=== PATIENT | male | born 1960 | race Caucasian/White ===

== ENCOUNTER 2018-02-11 11:16 | Inpatient (IN) | payer OTHER ==
[~2018-02-11] VITALS: Ht 167.6 cm; Wt 64.6 kg
[2018-02-11] VITALS (12 sets, daily range): BP systolic 97–152; BP diastolic 61–122
[2018-02-11] MEDS ORDERED: METFORMIN HCL500 MG PO (11:17)
[2018-02-11 11:43] LABS: URINE BILIRUBIN NEGATIVE (Negative); URINE BLOOD NEGATIVE (Negative); URINE CLARITY CLEAR; URINE COLOR YELLOW; URINE GLUCOSE-RANDOM NEGATIVE (Negative); URINE KETONES 1+ (Negative); URINE LEUKOCYTES-REFLEX NEGATIVE (Negative); URINE NITRITE-REFLEX NEGATIVE (Negative); URINE PROTEIN NEGATIVE (Negative); URINE SPECIFIC GRAVITY <= 1.005 (1.005-1.030); URINE UROBILINOGEN 0.2 E.U./dl (0.2-1.0)
[2018-02-11 11:51] LABS: AMP/METHAMP Negative (Negative); BARBITURATES Negative (Negative); BENZODIAZEPINES Negative (Negative); COCAINE Negative (Negative); METHADONE Negative (Negative); OPIATES Negative (Negative); PCP Negative (Negative); THC Negative (Negative)
[2018-02-11 11:52] LABS: ABSOLUTE BASOPHILS 0.1 thou/uL (0.0-0.2); ABSOLUTE LYMPHOCYTES 1.3 thou/uL (0.8-5.3); ABSOLUTE MONOCYTES 0.8 thou/uL (0.0-1.2); ABSOLUTE NEUTROPHILS 3.8 thou/uL (1.6-8.1); BASOPHILS 1.2 %; EOSINOPHILS 0.4 %; HEMATOCRIT 46.1 % (42.0-52.0); HEMOGLOBIN 15.7 gm/dL (14.0-18.0); LYMPHOCYTES 21.9 %; MCH 32.3 pg (26.0-34.0); MCHC 34.1 g/dL (28.0-37.0); MCV 94.7 fL (80.0-100.0); MONOCYTES 12.8 %; MPV 7.1 fl. (7.2-11.1); NUCLEATED RBCS 0 /100WBC; PLATELET COUNT* 200 thou/uL (150-400); POLYS 63.7 %; RBC 4.86 mil/uL (4.50-6.00); RDW-CV 15.8 % (10.5-14.5); WBC 5.9 thou/uL (4.0-11.0)
[2018-02-11 12:01] LABS: ANION GAP 20 mmol/L (7-16); BUN 11 mg/dL (7-18); CALCIUM 8.7 mg/dL (8.5-10.1); CHLORIDE 101 mmol/L (98-107); CO2 20 mmol/L (21-32); CREATININE 0.6 mg/dL (0.6-1.3); GLUCOSE 88 mg/dL (70-99); POTASSIUM 3.4 mmol/L (3.5-5.1); SODIUM 141 mmol/L (136-145)
[2018-02-11 12:02] LABS: APTT 29.2 Seconds (25.0-31.3); INR 0.9; PROTIME 9.7 Seconds (9.20-11.50)
[2018-02-11 12:08] LABS: ALBUMIN 4.2 g/dL (3.4-5.0); ALKALINE PHOSPHATASE 87 U/L (46-116); LIPASE 714 U/L (73-393); SGOT 173 U/L (15-37); SGPT 166 U/L (30-65); TOTAL BILIRUBIN 0.5 mg/dL (<0.1-1.0); TOTAL PROTEIN 7.4 g/dL (6.4-8.2); TROPONIN-I LEVEL <0.06 ng/mL (<0.06)
[2018-02-11 12:25] LABS: ALCOHOL 371 mg/dL (<10); SALICYLATE 6.8 mg/dL (2.8-20.0)
[2018-02-11 12:29] LABS: ACETAMINOPHEN < 2 ug/mL (10-30)
--- NOTE | 2018-02-11 14:12 | NUR ---
PT SISTER, GUERITA CAN BE REACHED AT [phone]
--- NOTE | 2018-02-11 14:32 | EKG ---
[place] [address] ELECTROCARDIOGRAM REPORT Name: BELLA KINSEY Room: [address] ADM IN ..#: [id number] Admission: 02/11/18 Attend Phys: Cynthia Desir Discharge: Date of : 58 Report #: [id number] THIS REPORT FOR: //name// [facility] ED Test Date: 2018-02-11 Test Time: 11:36:34 Pat Name: BELLA KINSEY Department: Room: [facility] Gender: M Lumber Buyer: Rogers SANTIZO : 1960 Requested By: Tomy Looney Order Number: [id number] MD: Claus Mendez Measurements Intervals [employer] Rate: 113 P: 38 IL: 141 QRS: 7 QRSD: 100 T: 40 QT: 328 QTc: 450 Interpretive Statements Sinus tachycardia No previous ECG available for comparison Electronically Signed On 02-11-2018 14:32:27 CEMENT LOADER by Claus Mendez [email or web address] <ELECTRONICALLY SIGNED> By: Claus Mendez MD, [facility] 02/11/18 1432 D: [id number] Claus Mendez MD, FAC /EPI
[2018-02-11] MEDS ORDERED: LISINOPRIL20 MG PO (16:30)
[2018-02-11 18:08] LABS: CALCIUM 7.7 mg/dL (8.5-10.1); CREATININE 0.6 mg/dL (0.6-1.3); MAGNESIUM 1.8 mg/dL (1.8-2.4); POTASSIUM 3.7 mmol/L (3.5-5.1)
[2018-02-12] VITALS (9 sets, daily range): BP systolic 100–129; BP diastolic 67–87
--- NOTE | 2018-02-12 06:20 | NUR ---
PT AAOX4 RESP REG AND UNALBORED SKIN W/D NO ACUTE DISTRESS NOTED. HAND SEWER INTACT. WITH ALARMS SET. CIWA 0,2,0 TONIGHT. PT DESATS WHEN SLEEPING AND O2 2L BNC APPLIED. VSS AND NO ACUTE CHANGES DURING SHIFT. WILL CONTINUE TO MONITOR
[2018-02-12 08:59] LABS: ABSOLUTE LYMPHOCYTES 0.9 thou/uL (0.8-5.3); ABSOLUTE MONOCYTES 0.9 thou/uL (0.0-1.2); ABSOLUTE NEUTROPHILS 4.7 thou/uL (1.6-8.1); BASOPHILS 0.7 %; EOSINOPHILS 0.3 %; HEMATOCRIT 39.9 % (42.0-52.0); LYMPHOCYTES 13.8 %; MCH 32.4 pg (26.0-34.0); MCHC 34.1 g/dL (28.0-37.0); MCV 94.8 fL (80.0-100.0); MONOCYTES 13.3 %; MPV 7.3 fl. (7.2-11.1); NUCLEATED RBCS 0 /100WBC; PLATELET COUNT* 150 thou/uL (150-400); POLYS 71.9 %; RBC 4.21 mil/uL (4.50-6.00); RDW-CV 15.6 % (10.5-14.5); WBC 6.5 thou/uL (4.0-11.0)
[2018-02-12 09:01] LABS: HEMOGLOBIN 13.6 gm/dL (14.0-18.0)
[2018-02-12 09:13] LABS: ALBUMIN 3.5 g/dL (3.4-5.0); CALCIUM 8.2 mg/dL (8.5-10.1); CREATININE 0.6 mg/dL (0.6-1.3); MAGNESIUM 1.6 mg/dL (1.8-2.4); PHOSPHORUS* 2.8 mg/dL (2.5-4.9); POTASSIUM 3.9 mmol/L (3.5-5.1); TOTAL BILIRUBIN 1.6 mg/dL (<0.1-1.0); TOTAL PROTEIN 6.1 g/dL (6.4-8.2)
--- NOTE | 2018-02-12 11:34 | NUR ---
MET WITH PT TO DISCUSS HOME SITUATION/DC PLANNING. PT LIVES IN [facility] AT THIS TIME. WAS WORKING A ASSISTANT ATHLETIC TRAINER IN [employer] BUT STATES LOST HIS JOB A WEEK AGO. ADMITS TO ETOH INTAKE, STATES HAS BEEN IN [place] IN PAST, LAST WAS 5YRS AGO IN [place]. WAS IN A 13MONTH '[place]' PROGRAM AND STAYED SOBER FOR 14MONTHS. HE IS CONSIDERING ETOH REHAB [place] AT THIS TIME. PT HAS DR HE SEES AT [facility] IN [facility]. SISTER GUERITA JOYNER IS DPOA AND SUPPROTIVE. GAVE PT ETOH REHAB RESOURCES AND DISCUSSED. EXPLAINED THAT HE WILL NEED TO MAKE CALLS TO SET UP OUTPT [place], SUGGESTED HE CALL FIRST CALL, [facility] OR [facility] AND GAVE NUMBERS. ALSO GAVE COMMUNITY/PRESCRIPTION RESOURCES. WILL FOLLOW
--- NOTE | 2018-02-12 13:14 | NUR ---
REPORT FROM [facility]. ASSESSMENT CHARTED. AFEBRILE. VITAL SIGNS STABLE. PT TELE STATUS. MEDS GIVEN. UPDATED FAMILY ON PT STATUS. WILL CONTINUE TO MONITOR.
[2018-02-13] VITALS: BP 116/74
--- NOTE | 2018-02-13 02:15 | NUR ---
TRANSFER FROM ER PT ARRIVED TO THE FLOOR AT 1920 AND I RECIEVED REPORT FROM ICU NURSE. PT UP ADLIB. HI LIFT OPERATOR IN PLACE. VITAL SIGNS STABLE AND ON RA. PT DID STATE HE HAD A HEADACHE AND PRN MEDS GIVEN ORDERED. ASSESSMENT COMPLETED AND DISCUSSED PLAN OF CARE WT PT AND HE UNDERSTANDS. BED LOCKED AND CALL LIGHT WITHIN REACH. FALL PRECAUTIONS IN PLACE. HOURLY ROUNDING COMPLETED AND ALL NEEDS MET. NURSING WILL CONTINUE TO MONITOR.
[2018-02-13 04:00] VITALS: BP 115/84
--- NOTE | 2018-02-13 08:30 | NUR ---
ASSUMED PT. CARE AND RECEIVED REPORT AT 0730. PT A/OX4, VSS, MONITOR ON TRACING SR. PT. DENIES CURRENT PAIN, EXCEPT HEADACHE;TREATED BY TYLENOL. ON RA @ 96%. FULL ASSESSMENT COMPLETED, REFER TO CHARTING. PT. DOES NOT EXHIBIT ANY OBVIOUS SIGNS OF DETOX AT THIS TIME. CALL LIGHT IN REACH, WILL CONTINUE WITH PLAN OF CARE.
[2018-02-13 08:57] VITALS: BP 145/97
[2018-02-13 11:37] VITALS: BP 126/75
[2018-02-13 12:03] VITALS: BP 126/75
--- NOTE | 2018-02-13 12:52 | NUR ---
DC ORDERS RECEIVED. BOTH IV'S AND MONITOR REMOVED. PT. GIVEN DC INSTRUCTIONS AND VERBALIZED UNDERSTANDING. PT. LEFT VIA CAB TO RETURN TO HOME, ALL BELONGINGS ACCOUNTED FOR AT TIME OF DC.
== END 2018-02-13 12:53 | disposition home or self-care (01) | DRG 440 ==
LOC: M.ERS 11:16 → M.ICU 12:53 → M.TBA-ER 12:53 → M.ICU 14:01 → M.2W 02-12 19:28
PROVIDERS: Family Medicine; ADMIT Internal Medicine
DX: K85.20 Alcohol induced acute pancreatitis without necrosis or infection (principal); E11.9 Type 2 diabetes mellitus without complications; E86.0 Dehydration; F17.210 Nicotine dependence, cigarettes, uncomplicated; F10.129 Alcohol abuse with intoxication, unspecified; E83.42 Hypomagnesemia; Z79.899 Other long term (current) drug therapy; Z28.21 Immunization not carried out because of patient refusal

== ENCOUNTER 2018-05-06 21:42 | Inpatient (IN) | payer OTHER ==
[~2018-05-06] VITALS: Ht 172.7 cm; Wt 65.8 kg
[~2018-05-06 21:42] MED LIST: LISINOPRIL20 MG PO; METFORMIN HCL500 MG PO
[2018-05-06 21:43] VITALS: BP 137/99
[2018-05-06] MEDS ORDERED: CARVEDILOL (21:50)
[2018-05-06 22:10] LABS: ABSOLUTE BASOPHILS 0.1 thou/uL (0.0-0.2); ABSOLUTE EOSINOPHILS 0.1 thou/uL (0.0-0.7); ABSOLUTE LYMPHOCYTES 2.9 thou/uL (0.8-5.3); ABSOLUTE MONOCYTES 0.7 thou/uL (0.0-1.2); ABSOLUTE NEUTROPHILS 4.3 thou/uL (1.6-8.1); BASOPHILS 0.9 %; EOSINOPHILS 1.1 %; HEMATOCRIT 43.9 % (42.0-52.0); HEMOGLOBIN 14.6 gm/dL (14.0-18.0); LYMPHOCYTES 35.9 %; MCH 30.4 pg (26.0-34.0); MCHC 33.3 g/dL (28.0-37.0); MCV 91.3 fL (80.0-100.0); MONOCYTES 8.7 %; MPV 7.6 fl. (7.2-11.1); NUCLEATED RBCS 0 /100WBC; PLATELET COUNT* 284 thou/uL (150-400); POLYS 53.4 %; RBC 4.82 mil/uL (4.50-6.00); RDW-CV 14.5 % (10.5-14.5)
[2018-05-06 22:20] LABS: ALKALINE PHOSPHATASE 82 U/L (46-116); ANION GAP 10 mmol/L (7-16); BUN 6 mg/dL (7-18); CALCIUM 8.8 mg/dL (8.5-10.1); CHLORIDE 100 mmol/L (98-107); CO2 28 mmol/L (21-32); CREATININE 0.7 mg/dL (0.6-1.3); GLUCOSE 105 mg/dL (70-99); LIPASE 249 U/L (73-393); MAGNESIUM 1.9 mg/dL (1.8-2.4); POTASSIUM 3.5 mmol/L (3.5-5.1); SGOT 24 U/L (15-37); SGPT 31 U/L (30-65); SODIUM 138 mmol/L (136-145); TOTAL BILIRUBIN 0.3 mg/dL (<0.1-1.0); TOTAL PROTEIN 7.2 g/dL (6.4-8.2); TROPONIN-I LEVEL <0.06 ng/mL (<0.06)
[2018-05-07 04:34] VITALS: BP 97/69
[2018-05-07 05:00] VITALS: BP 111/71
[2018-05-07 08:00] VITALS: BP 106/68
[2018-05-07 08:57] LABS: PROTIME 10.4 Seconds (9.20-11.50)
[2018-05-07 09:49] LABS: PHOSPHORUS* 3.5 mg/dL (2.5-4.9)
[2018-05-07 11:26] VITALS: BP 112/78
[2018-05-07 15:25] VITALS: BP 132/86
--- NOTE | 2018-05-07 16:05 | EKG ---
[place] [address] ELECTROCARDIOGRAM REPORT Name: BELLA KINSEY Room: [address] ADM IN [facility]#: [id number] Admission: 05/07/18 Attend Phys: Cynthia Desir Discharge: Date of : 58 Report #: [id number] THIS REPORT FOR: //name// [facility] ED Test Date: 2018-05-06 Test Time: 21:57:02 Pat Name: BELLA KINSEY Department: Room: [facility] Gender: M Print Production Manager: BRIE : 1960 Requested By: Miriam Orlando Order Number: [id number] MD: Bella Monzon Measurements Intervals [place] Rate: 63 P: 38 NM: 145 QRS: 12 QRSD: 115 T: 14 QT: 407 QTc: 417 Interpretive Statements Sinus rhythm Nonspecific intraventricular conduction delay Artifact in lead(s) I,II,aVR,aVF,V1,V2,V4,V5,V6 Compared to ECG 02/11/2018 11:36:34 Intraventricular conduction delay now present Sinus tachycardia no longer present Electronically Signed On 05-07-2018 16:05:10 ROUTER MACHINE OPERATOR by Bella Monzon [email or web address] <ELECTRONICALLY SIGNED> By: Bella Monzon MD, [facility] 05/07/18 1605 [id number] Bella Monzon MD, FAC /EPI
[2018-05-07 20:09] VITALS: BP 122/84
[2018-05-08] VITALS: BP 124/89
[2018-05-08 03:30] VITALS: BP 144/98
[2018-05-08 05:12] LABS: ABSOLUTE BASOPHILS 0.1 thou/uL (0.0-0.2); ABSOLUTE EOSINOPHILS 0.2 thou/uL (0.0-0.7); ABSOLUTE LYMPHOCYTES 1.2 thou/uL (0.8-5.3); ABSOLUTE MONOCYTES 0.6 thou/uL (0.0-1.2); ABSOLUTE NEUTROPHILS 3.9 thou/uL (1.6-8.1); EOSINOPHILS 3.2 %; HEMATOCRIT 39.4 % (42.0-52.0); HEMOGLOBIN 13.1 gm/dL (14.0-18.0); LYMPHOCYTES 20.4 %; MCH 30.8 pg (26.0-34.0); MCHC 33.2 g/dL (28.0-37.0); MCV 92.6 fL (80.0-100.0); MONOCYTES 9.7 %; NUCLEATED RBCS 0 /100WBC; PLATELET COUNT* 240 thou/uL (150-400); POLYS 65.7 %; RBC 4.25 mil/uL (4.50-6.00); RDW-CV 14.7 % (10.5-14.5)
[2018-05-08 05:24] LABS: CALCIUM 8.8 mg/dL (8.5-10.1); CREATININE 0.7 mg/dL (0.6-1.3); MAGNESIUM 1.7 mg/dL (1.8-2.4); POTASSIUM 3.5 mmol/L (3.5-5.1)
[2018-05-08 07:48] VITALS: BP 132/95
[2018-05-08 12:01] VITALS: BP 140/96
[2018-05-08] MEDS ORDERED: LISINOPRIL20 MG PO (12:18)
[2018-05-08] MEDS ORDERED: METFORMIN HCL500 MG PO (12:18)
[2018-05-08] MEDS ORDERED: AUGMENTIN 875-1 EACH PO (12:19)
[2018-05-08 12:55] VITALS: BP 140/96
== END 2018-05-08 16:00 | disposition home or self-care (01) | DRG 195 ==
LOC: M.ERS 21:42 → M.TBA-ER 05-07 02:44 → M.ERS 05-07 03:44 → M.TBA-ER 05-07 03:44 → M.2W 05-07 04:14
PROVIDERS: Emergency Medicine; Family Medicine; ADMIT Internal Medicine
DX: J15.9 Unspecified bacterial pneumonia (principal); E11.9 Type 2 diabetes mellitus without complications; F17.210 Nicotine dependence, cigarettes, uncomplicated; I10 Essential (primary) hypertension; F10.129 Alcohol abuse with intoxication, unspecified; Z79.899 Other long term (current) drug therapy; Z83.3 Family history of diabetes mellitus; Z23 Encounter for immunization